=== PATIENT | female | born 1965 | race Two or more races ===

== ENCOUNTER → 2017-06-28 | Emergency (ER) | payer OTHER ==
[~2017-06-28] VITALS: Ht 162.6 cm; Wt 81.6 kg
== END | disposition home or self-care (01) ==
LOC: ER 16:05
DX: S00.83XA Contusion of other part of head, initial encounter (principal); S10.83XA Contusion of other specified part of neck, initial encounter; W18.39XA Other fall on same level, initial encounter; Y93.89 Activity, other specified; Y92.89 Other specified places as the place of occurrence of the external cause; Y99.8 Other external cause status